=== PATIENT | female | born 1945 | race Caucasian/White ===

== ENCOUNTER 2017-08-03 17:36 | Emergency (ER) | payer MEDICARE, OTHER ==
--- NOTE | 2017-08-04 09:55 | ER ---
ADMIT: 08/03/2017 RM/LOC: ER [facility] MR#: [id number] [address] [address] [place] [address] Emergency Room Report SEX: F AGE: 71 : 1945 DATE: 08/03/2017 CHIEF COMPLAINT: Abdominal pain. HISTORY OF PRESENT ILLNESS: This 71-year-old female who presents to the ER with a day's duration of left lower quadrant, left flank pain. States she does have a history of diverticulitis, feels similar to this, phoned Dr. Rowan's office, who recommended she present here for evaluation. Describes this as left lower quadrant, flank pain, sharp and stabbing, 8/10. Associated with some nausea. She has not vomited. No fevers, chills, diarrhea, loss of appetite. No recent injuries, constipation, bloody stools, problems urinating. PAST MEDICAL HISTORY: Hypertension, hyperlipidemia. ALLERGIES: PENICILLIN. COURSE IN THE EMERGENCY ROOM: The patient was seen and examined. GENERAL: Afebrile, nontoxic. Mild amount of distress. HEENT: Normocephalic, atraumatic. Eyes, equal and reactive. Pharynx is nonerythematous. NECK: Soft, supple. CHEST: Clear. HEART: Regular. ABDOMEN: She has some tenderness and guarding in the left lower quadrant. She has some left flank tenderness and guarding as well. No McBurney point tenderness. The abdomen itself is not rigid or distended. SKIN: Warm, dry, intact. EXTREMITIES: Nontender. No pedal edema. NEURO: She is alert and oriented. LABORATORY STUDIES: CBC within normal limits. CMP unremarkable. Urine, no signs of blood infection. CT abdomen and pelvis with contrast does show early diverticulitis with some wall thickening and inflammatory changes. There is no overt abscess or evidence of other intraabdominal processes. While in the department, she received a liter of normal saline. She was managed with morphine for pain and given Zofran for nausea. ADMIT: 08/03/2017 RM/LOC: ER [facility] MR#: [id number] [id number] [place] [address] Emergency Room Report SEX: F AGE: 71 : 1945 CLINICAL IMPRESSION: Diverticulitis. DISPOSITION: Discharged home. Cipro 500 mg one tab p.o. b.i.d. for 10 days. Flagyl 500 mg tabs one tab p.o. t.i.d. for 10 days. She is to follow up with Dr. Rowan this week. She was given a script for Ultram 50, one tab p.o. 6 hours as needed for pain, #20. She is to increase fluids. Continue home medications. Tylenol or Motrin. Return home and rest. She was recommended to allow the bowel to rest, clears, low-fiber foods, advance as tolerated. Certainly return with any worsening signs or symptoms. Discharged home in stable condition. MANUEL Wallace / Richy Morales MD / modl JOB #: [id number] CC: Richy Morales MD, Attending Physician Ely Rowan MD, Family Physician
== END 2017-08-03 20:30 | disposition home or self-care (01) ==
LOC: ER 17:36
DX: K57.92 Diverticulitis of intestine, part unspecified, without perforation or abscess without bleeding (principal); I10 Essential (primary) hypertension; E78.5 Hyperlipidemia, unspecified; Z88.0 Allergy status to penicillin; Z79.82 Long term (current) use of aspirin; Z98.890 Other specified postprocedural states